=== PATIENT | male | born 1950 | race Caucasian/White ===

== ENCOUNTER 2019-08-12 18:31 | Emergency (ER) | payer MEDICARE | END 2019-08-12 19:35 | disposition home or self-care (01) | LOC: MADERS 18:31 | DX: S01.81XA Laceration without foreign body of other part of head, initial encounter (principal); I10 Essential (primary) hypertension; E78.5 Hyperlipidemia, unspecified; Z79.899 Other long term (current) drug therapy; Z87.891 Personal history of nicotine dependence; X58.XXXA Exposure to other specified factors, initial encounter | CPT/HCPCS: 99282 ==